=== PATIENT | female | born 1950 | race Caucasian/White ===

== ENCOUNTER 2019-10-01 06:00 | Day surgery (SDC) | payer OTHER ==
[~2019-10-01] VITALS: Ht 157.5 cm; Wt 109.1 kg
[2019-10-01 06:19] LABS: HEMATOCRIT 41.1 % (36.0-48.0); HEMOGLOBIN 13.4 g/dL (12-16); MCH 28.2 pg (26.0-34.0); MCHC 32.6 g/dL (31.0-37.0); MCV 86.3 fL (80.0-100.0); MEAN PLATELET VOLUME 9.2 fL (7.4-10.4); RBC 4.76 10x6/uL (4.00-5.40); RDW 13.8 % (11.5-14.5); WBC 5.8 10x3/uL (4.8-10.8)
[2019-10-01 06:54] LABS: APTT 27.4 SECONDS (22.8-39.4); INR 1.03 (0.85-1.17); PROTIME 13.4 SECONDS (11.6-15.0)
[2019-10-01] MEDS ORDERED: BAYER CHEWABLE81 MG PO (06:56)
[2019-10-01] MEDS ORDERED: FERROUS SULFAT325 MG PO (06:56)
[2019-10-01] MEDS ORDERED: PROZAC20 MG PO (06:56)
[2019-10-01] MEDS ORDERED: LIPITOR80 MG PO (06:57)
[2019-10-01] MEDS ORDERED: TOPROL XL25 MG PO (06:57)
[2019-10-01] MEDS ORDERED: VITAMIN B-121000 MCG PO (06:57)
[2019-10-01] MEDS ORDERED: SYNTHROID25 MCG PO (06:58)
[2019-10-01 07:06] VITALS: Ht 157.5 cm; Wt 109.1 kg
--- NOTE | 2019-10-01 08:41 | NUR ---
PT AWAKE AND ALERT AT THIS TIME. VSS. DR. JOHNSON SPOKE TO PT REGARDING PROCEDURE. PT STATES UNDERSTANDING. PT ABLE TO TOLERATE LIQUIDS. WILL CALL TO PICK HER UP SHORTLY. PT DENIES PAIN/NEEDS AT THIS TIME. WILL CONTINUE TO MONITOR.
--- NOTE | 2019-10-01 08:52 | NUR ---
DC INSTRUCTIONS GIVEN TO PT. STATES UNDERSTANDING. DC'D IV CATH FULLY INTACT. PT LEFT UNIT VIA AT [id number]
--- NOTE | 2019-10-03 09:52 | OP ---
PATIENT NAME: LOUIE ANDRADE MEDICAL RECORD: [id number] :48 LOCATION:[facility] ADMISSION DATE: SURGEON: ANGELA JOHNSON DO DATE OF OPERATION: 10/01/2019 PROCEDURE: EGD with biopsies. 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 Her last EGD was in 2015 and was negative for Conway's mucosa. The patient also has heartburn. SCOPE: Olympus video gastroscope. MEDICATIONS: Propofol 150 mg IV per anesthesia. ESTIMATED BLOOD LOSS: Minimal. COMPLICATIONS: None. FINDINGS: Informed consent was given. The patient was made comfortable with the above medication. After reaching an adequate level of sedation by slow IV push, the patient was placed in left side. The endoscope was advanced under direct visualization through the mouth to the second portion of the duodenum with ease. In the upper and mid esophagus, there were a few white patches consistent with Kavitha. Cold forceps biopsies were taken to confirm this diagnosis. At the GE junction, there were minor changes consistent with LA class A reflux-induced esophagitis. There was possible Conway's mucosa. Cold forceps biopsies were taken from the squamocolumnar junction to rule this out. The endoscope was advanced beyond the GE junction into the stomach where a prior surgery had been performed. Retroflexion was performed in the stomach with a normal appearance. The endoscope was advanced beyond the first gastric pouch into the antral area. There was another side pouch from the body of the stomach, which was large and could not be evaluated fully as the endoscope could not traverse the site adequately. Cold forceps biopsies were taken from the pouch and the antrum to submit for histopathology and to rule out the presence of H. pylori. The endoscope was advanced beyond the pylorus into the duodenum, which appeared normal to the second portion. The endoscope was then withdrawn from the patient. The patient tolerated the procedure well and there were no complications. IMPRESSION: 1. Mild candidal esophagitis involving the upper and mid esophagus. 2. LA class A reflux-induced esophagitis and possible Conway mucosa. Biopsies were taken. 3. Prior surgical intervention in the stomach in the form of a gastric stapling. PLAN AND RECOMMENDATIONS: 1. Discharge home when recovery parameters are met. 2. Follow up biopsy specimen results. 3. GERD diet and reflux precautions. 4. Continue omeprazole 20 mg daily for GERD. 5. We will treat Kavitha esophagitis with fluconazole 100 mg daily times 7 days. 6. Repeat EGD will be dependent on results of biopsy specimens. OPERATIVE REPORT [id number] LOUIE ANDRADE 7. Follow up in GI clinic as scheduled or as needed. TRANSINT:[id number] Voice Confirmation ID: [id number] DOCUMENT ID: [id number] ANGELA JOHNSON DO at 0952 CC: [id number] DICTATION DATE: 10/01/19825 UROGYNAECOLOGIST: 10/01/19 1418 [facility] 10/01/19 [facility] [address] [place] [address]
== END 2019-10-01 08:59 | disposition home or self-care (01) ==
LOC: D.OPS 06:00
PROVIDERS: Anesthesiology; ATTEND Internal Medicine Gastroenterology
DX: R12 Heartburn (principal); K21.0 Gastro-esophageal reflux disease with esophagitis; E03.9 Hypothyroidism, unspecified